=== PATIENT | male | born 1940 | race Caucasian/White ===

== ENCOUNTER 2019-02-20 19:57 | Inpatient (IN) | payer MEDICARE ==
[~2019-02-20] VITALS: Ht 170.2 cm; Wt 117.4 kg
[~2019-02-20 19:57] MED LIST: ALLO100T PO; AMLO10TA2 PO; BACITAB PO; COLA50CA3 PO; DRIS1CAP PO; FERR325T3 PO; FINA5TAB2 PO; FISH1000 PO; FLAG500T PO; HYDR-2773 PO; IPRATROPIUM INH; LABE300T PO; LASI20TA PO; MULTTAB4 PO; OMEP20CA4 PO; OXYC1TAB23 PO; PROBCAP13 PO; SIMV10TA2 PO; THERTAB30 PO; albuterol neb INH; terazosin OR
[2019-02-20] MEDS ORDERED: LANT500C (20:30)
[2019-02-20] MEDS ORDERED: GABA-1171 (20:30)
[2019-02-20] MEDS ORDERED: RENATAB5 (20:30)
[2019-02-20] MEDS ORDERED: OMEP-218 (20:30)
[2019-02-20] MEDS ORDERED: PRAV10TA3 (20:30)
[2019-02-20] MEDS ORDERED: ASMA220A (20:30)
[2019-02-20] MEDS ORDERED: ROPI0.5T (20:30)
[2019-02-20] MEDS ORDERED: TERA5CAP3 (20:30)
[2019-02-20] MEDS ORDERED: IPRA2IN (20:30)
[2019-02-20] MEDS ORDERED: ALBU83IN (20:30)
[2019-02-20 21:44] LABS: HEMATOCRIT 28.4 % (42.0-52.0); HEMOGLOBIN 9.2 g/dl (13.5-17.5); MEAN CORPUSCULAR HEMOGLOBIN 31.9 pg (27.0-33.0); MEAN CORPUSCULAR HGB CONC 32.4 g/dl (32.0-36.5); MEAN CORPUSCULAR VOLUME 98.6 fl (80.0-96.0); PLATELET COUNT, AUTOMATED 135 10^3/uL (150-450); RED BLOOD COUNT 2.88 10^6/uL (4.30-6.10); WHITE BLOOD COUNT 11.2 10^3/uL (4.0-10.0)
[2019-02-20 21:49] LABS: INR 1.27; PROTHROMBIN TIME 15.6 SECONDS (11.8-14.0)
[2019-02-20 21:50] LABS: PARTIAL THROMBOPLASTIN TIME 35.7 SECONDS (25.0-38.4)
[2019-02-20 22:04] LABS: ALBUMIN 3.3 GM/DL (3.2-5.2); ALT/SGPT 14 U/L (12-78); BILIRUBIN,TOTAL 0.5 MG/DL (0.2-1.0); BLOOD UREA NITROGEN 29 MG/DL (7-18); CALCIUM LEVEL 9.5 MG/DL (8.8-10.2); CARBON DIOXIDE LEVEL 33 MEQ/L (21-32); CHLORIDE LEVEL 95 MEQ/L (98-107); CK-MB VALUE MASS < 1.0 NG/ML (<3.6); CPK CREATINE PHOSPHOKINASE 35 U/L (39-308); CREATININE FOR GFR 5.32 MG/DL (0.70-1.30); GLOMERULAR FILTRATION RATE 11.2 (>42); GLUCOSE, FASTING 118 MG/DL (70-100); MB/CK RELATIVE INDEX 2.86 (< OR =4); NT-PRO BNP 47179 PG/ML (<450); POTASSIUM SERUM 3.8 MEQ/L (3.5-5.1); SODIUM LEVEL 137 MEQ/L (136-145); TOTAL PROTEIN 6.8 GM/DL (6.4-8.2); TROPONIN I 0.02 NG/ML (< 0.10)
[2019-02-20] MEDS ORDERED: ISOVUE-370 76% 100ML VIAL (Q9967) As Ordered ONE (22:36)
[2019-02-20] MEDS ORDERED: FINA5TAB2 PO (23:29)
[2019-02-20] MEDS ORDERED: ALBU83IN INH (23:29)
[2019-02-20] MEDS ORDERED: AMLO10TA5 PO ×2 (23:29)
[2019-02-20] MEDS ORDERED: IPRA2IN INH (23:29)
[2019-02-20] MEDS ORDERED: ASMA220A INH (23:29)
[2019-02-20] MEDS ORDERED: RENATAB5 PO (23:29)
[2019-02-20] MEDS ORDERED: FERR32TA PO (23:29)
[2019-02-20] MEDS ORDERED: GABA-1171 PO (23:29)
[2019-02-20] MEDS ORDERED: VITA1CAP25 PO (23:29)
[2019-02-20] MEDS ORDERED: OMEGCAP4 PO (23:30)
[2019-02-20] MEDS ORDERED: ROCA0.5C PO (23:30)
[2019-02-20] MEDS ORDERED: LIDO2.5C15 TOP (23:30)
[2019-02-20] MEDS ORDERED: RENV2TAB PO (23:30)
[2019-02-20] MEDS ORDERED: LANT500C PO (23:30)
[2019-02-20] MEDS ORDERED: TYLE650T35 PO (23:30)
[2019-02-20] MEDS ORDERED: CINA30TA5 PO (23:30)
[2019-02-20] MEDS ORDERED: BACITAB PO (23:30)
[2019-02-20] MEDS ORDERED: PRAV10TA3 PO (23:30)
[2019-02-20] MEDS ORDERED: OMEP-218 PO (23:30)
[2019-02-20] MEDS ORDERED: TERA5CAP3 PO (23:30)
[2019-02-20] MEDS ORDERED: LABE200T32 PO (23:30)
[2019-02-20] MEDS ORDERED: ROPI0.5T PO (23:30)
--- NOTE | 2019-02-20 23:40 | REPVR ---
EXAM: CT Angiography Chest With Contrast EXAM DATE/TIME: 02/20/2019 11:00 PM CLINICAL HISTORY: 78 years old, male; Dyspnea and shortness of breath; Additional info: Dysp TECHNIQUE: Imaging protocol: Axial computed tomographic angiography images of the chest with intravenous contrast using CT angiography protocol. Coronal and sagittal reformatted images were created and reviewed. 3D rendering: MIP reconstructed images were created and reviewed. Radiation optimization: All CT scans at this facility use at least one of these dose optimization techniques: automated exposure control; mA and/or kV adjustment per patient size (includes targeted exams where dose is matched to clinical indication); or iterative reconstruction. Contrast material: ISOVUE 370; Contrast volume: 75 ml; Contrast route: IV; COMPARISON: CR Chest, 2 view PA, Lat 02/20/2019 9:50 PM FINDINGS: Pulmonary arteries: There are no pulmonary emboli. Contrast density in the pulmonary arteries not optimized to exclude small peripheral pulmonary emboli. Aorta: The aorta demonstrates mild atherosclerotic calcification. There is no aortic dissection or aneurysm. Lungs: Bibasilar infiltrates likely atelectatic. Clinical correlation to exclude infection suggested. Pleural space: Unremarkable. No pneumothorax. No pleural effusion. Heart: There is moderate atherosclerotic calcification of the coronary arteries. Small pericardial effusion. Cardiomegaly. Kidneys and ureters: Right renal atrophy. Status post left nephrectomy. Lymph nodes: Unremarkable. No enlarged lymph nodes. Bones/joints: Arthropathic changes in the glenohumeral joints. The spine demonstrates mild degenerative changes. Soft tissues: Unremarkable. IMPRESSION: 1. Bibasilar infiltrates likely atelectatic. Clinical correlation to exclude infection suggested. 2. There is no aortic dissection or aneurysm. 3. Small pericardial effusion. 4. There are no pulmonary emboli. Contrast density in the pulmonary arteries not optimized to exclude small peripheral pulmonary emboli. Electronically signed by: Brian Huertas On 02/20/2019 23:40:31 PM
[2019-02-21] MEDS ORDERED: ACETAMINOPHEN TAB 650MG DOSE (2X325MG) PO PRN (02:00)
[2019-02-21] MEDS ORDERED: GI COCKTAIL 50ML BTL(HYOSCYAMINE/MAALOX/LIDOCAINE VISCOUS)(1:3:1) PO ONE (02:00)
[2019-02-21] MEDS ORDERED: MOM 30ML SUSPENSION UDC PO PRN (02:00)
[2019-02-21 05:15] VITALS: BP 134/43
--- NOTE | 2019-02-21 05:56 | HPEPDOC ---
General Date of Admission Feb 21, 2019 at 01:46 Date of Service: Feb 21, 2019 Primary Care Physician: Igor Conteh Other Providers Dr Burgos Attending Physician: NELLY SAN DO Chief Complaint The patient is a 78-year-old male admitted with a reason for visit of Chronic Renal Failure, Dyspnea. Source: Patient, Family, Old records Exam Limitations: No limitations, Mild cognitive slowing Timing/Duration: Week(s) (1-2), Getting worse, Changing over time, This evening Severity: Moderate Associated Symptoms: Chest Pain, Cough, Malaise, Nausea, Shortness of breath, Weakness, Other (increased acid reflux) History of Present Illness 78 yo male with HTN and ESRD presented to ED with increasing reflux,CP, SOB and cough. Patient had dialysis today 02/20 and felt fine but then when he returned home, per and daughter, he became more weak and confused with oxygen saturation 88% on RA. They states every night for past 1-2 weeks, when he eats before bed (ie popcorn), he has increased gastric reflux and chest pain and SOB. Workup in the ED showed a CXR without CHF or aspiration, CTA chest without PE. He was to be discharged home however, Per the ED , Dr Quick is requesting admission of this patient for further evaluation of his SOB, hypoxia and debility Home Medications Scheduled Acetaminophen (Tylenol Arthritis) 650 Mg Tablet.er, 1,300 MG PO BID, (Reported) Amlodipine Besylate (Amlodipine Besylate) 10 Mg Tablet, 10 MG PO 4XWK, (Reported) WEDNESDAY, WEDNESDAY, WEDNESDAY AND WEDNESDAY Amlodipine Besylate (Amlodipine Besylate) 10 Mg Tablet, 5 MG PO 3XW, (Reported) WEDNESDAY, WEDNESDAY AND WEDNESDAY Calcitriol (Rocaltrol) 0.5 Mcg Capsule, 0.5 MCG PO 2XW, (Reported) WEDNESDAY AND WEDNESDAY AT NOON Cholecalciferol (Vitamin D3) (Vitamin D3) 50,000 Unit Capsule, 50,000 UNIT PO 1XWK, (Reported) WEDNESDAY AT NOON Cinacalcet HCl (Cinacalcet HCl) 30 Mg Tablet, 30 MG PO QPM, (Reported) DINNER Ferrous Gluconate (Ferrous Gluconate) 324 Mg Tablet, 324 MG PO BID, (Reported) MORNING AND DINNER Finasteride (Finasteride) 5 Mg Tablet, 5 MG PO QPM, (Reported) DINNER Folic Acid/Vit B Complex and C (Jaci-Lisandro Tablet) 0.8 Mg Tablet, 1 TAB PO QPM, (Reported) DINNER Gabapentin (Gabapentin) 100 Mg Capsule, 100 MG PO QHS, (Reported) L.acidoph/L.bulg/B.bif/S.therm (Bacid Caplet) 1 Each Tablet, 1 TAB PO QPM, (Reported) DINNER Labetalol HCl (Labetalol HCl) 200 Mg Tablet, 200 MG PO TID, (Reported) MORNING, NOON AND BEDTIME Lanthanum Carbonate (Lanthanum Carbonate) 500 Mg Tab.chew, 500 MG PO WM, (Reported) Lidocaine/Prilocaine (Lidocaine-Prilocaine Cream) 2.5%/2.5% Cream..g., 1 DOSE TOP 3XW, (Reported) PRIOR TO DIALYSIS ON WEDNESDAY, WEDNESDAY AND WEDNESDAY [employer] [place]-3/Dha/Epa/Fish Oil ([employer] [place]-3 Fish Oil 1,000 mg Sfgl) 1,000 Mg Capsule, 2 CAP PO QHS, (Reported) Omeprazole (Omeprazole) 20 Mg Capsule.dr, 20 MG PO DAILY, (Reported) NOON Pravastatin Sodium (Pravastatin Sodium) 10 Mg Tablet, 10 MG PO QHS, (Reported) Ropinirole HCl (Ropinirole HCl) 0.5 Mg Tablet, 0.5 MG PO QHS, (Reported) Sevelamer Carbonate (Renvela) 800 Mg Tablet, 800 MG PO WM, (Reported) Terazosin HCl (Terazosin HCl) 5 Mg Capsule, 5 MG PO DAILY, (Reported) Scheduled PRN Albuterol Sulf (Albuterol Sulfate) 2.5 Mg/3 Ml Vial.neb, 2.5 MG INH QID PRN for SHORTNESS OF BREATH, (Reported) Ipratropium [place] (Ipratropium [place]) 0.2 Mg/1 Ml Solution, 0.5 MG INH BID PRN for SHORTNESS OF BREATH, (Reported) MIXES WITH ALBUTEROL TWICE A DAY NEEDED Mometasone Furoate (Asmanex) 220 Mcg Aer.pow.ba, 1 PUFF INH BID PRN for SHORTNESS OF BREATH, (Reported) Allergies Coded Allergies: codeine (Verified Allergy, Unknown, 02/20/19) Past Medical History Medical History ESRD (dialysis M,W,F) HTN COPD (due to exposure at [employer]) OA hip and shoulders HE DENIES DM,HYPOTHYROID,CAD or THONG Past surgical history: partial nephrectomy right total nephrectomy left partial bowel resection 2 knee replacement Family history: mother brain aneurysm, father cancer Social history: never smoked. worked in [employer] with environment exposure; no etoh use A-FIB/CHADSVASC A-FIB History Current/History of A-Fib/PAF?: No Review of Systems Other systems 10 systems reviewed and negative except as per HPI Physical Examination General Exam: Positive: Alert, Cooperative, Mild Distress, Other (pickwickian appearing) Eye Exam: Positive: PERRLA, Conjunctiva & lids normal, EOMI ENT Exam: Positive: Atraumatic, Mucous membr. moist/pink, Pharynx Normal Neck Exam: Positive: Supple, +2 carotid pulse wo bruit, Other (no JVD; thick neck circumfrance) Chest Exam: Positive: Clear to auscultation, Normal air movement; Negative: Rales, Rhonchi, Wheezing, Diminished Heart Exam: Positive: Rate Normal, Irregular Rhythm Telemetry: Positive: Other Telemetry: (aflutter at 70 bpm) Abdomen Exam: Positive: Normal bowel sounds, Soft (NT ND , obese) Extremity Exam: Positive: Edema (1+ bilateral edema to legs), Normal pulses, Other (left arm fistula intact with thrill); Negative: Clubbing, Cyanosis Skin Exam: Positive: Nl turgor and temperature Neuro Exam: Positive: Normal Speech, Strength at 5/5 X4 ext (tested while sitting at edge of bed. ), Sensation Intact, Cranial Nerves 3-12 NL Psych Exam: Positive: Mood NL, Oriented x 3, Other (mental status slow but intact) Other physical findings CTA CHEST:IMPRESSION: 1. Bibasilar infiltrates likely atelectatic. Clinical correlation to exclude infection suggested. 2. There is no aortic dissection or aneurysm. 3. Small pericardial effusion. 4. There are no pulmonary emboli. Contrast density in the pulmonary arteries not optimized to exclude small peripheral pulmonary emboli. EKG reviewed and rate controlled aflutter present Vital Signs Vital Signs Date Time Temp Pulse Resp B/P (MAP) Pulse Ox O2 Delivery O2 Flow Rate FiO2 02/21/19 00:45 64 18 122/55 (77) 93 Nasal Cannula 2.0 02/20/19 20:24 99.4 Laboratory Data Labs 24H Laboratory Tests 2 02/20/19 20:31: Nucleated Red Blood Cells % (auto) 0.0, Prothrombin Time 15.6H, Prothromb Time International Ratio 1.27, Activated Partial Thromboplast Time 35.7, Anion Gap 9, Glomerular Filtration Rate 11.2L, Blood Urea Nitrogen 29H, Creatinine 5.32H, Sodium Level 137, Potassium Level 3.8, Chloride Level 95L, Carbon Dioxide Level 33H, Calcium Level 9.5, Aspartate Amino Transf (AST/SGOT) 9, Alanine Aminotransferase (ALT/SGPT) 14, Total Creatine Kinase 35L, Alkaline Phosphatase 62, Total Bilirubin 0.5, Total Protein 6.8, Albumin 3.3, Creatine Kinase MB < 1.0, Creatine Kinase MB Relative Index 2.86, Troponin I 0.02, NE-Nze-A-Type Natriuretic Peptide 46774D, Albumin/Globulin Ratio 0.94L CBC/BMP Laboratory Tests 02/20/19 20:31 Red Blood Count 2.88 L, Mean Corpuscular Volume 98.6 H, Mean Corpuscular Hemoglobin 31.9, Mean Corpuscular Hemoglobin Concent 32.4, Red Cell Distribution Width 14.8 H, Calcium Level 9.5, Aspartate Amino Transf (AST/SGOT) 9, Alanine Aminotransferase (ALT/SGPT) 14, Total Creatine Kinase 35 L, Alkaline Phosphatase 62, Total Bilirubin 0.5, Total Protein 6.8, Albumin 3.3 Assessment/Plan Chest pain /indigestion - check serial troponin, consider cardiac echo; trial of GI cocktail. If negative workup, may need to consider outpatient evaluation for GI (ie EGD, reflux study,etc) and cardiac stress test, etc. Hypoxia (ox sat RA 88%) Aby worked at [employer] - may need to consider OUTPATIENT pulmonary consult for possible THONG or fibrosis (although not seen on CT scan) COPD by history without exacerbation - continue nebs, prn oxygen. he has not been started on steroids. med rec pending ESRD - consult nephrology - dialysis M,W,F Debility - consult PT/OT CODE STATUS: DNR DVT prophylaxis: SC heparin Plan / VTE VTE Prophylaxis Ordered?: Yes NELLY SAN DO Feb 21, 2019 02:00
[2019-02-21] MEDS ORDERED: HEPARIN SOD (PORCINE) 5000 UNITS/ML VIAL SC SCH (06:00)
[2019-02-21 06:36] LABS: TROPONIN I 0.09 NG/ML (< 0.10)
[2019-02-21 07:59] LABS: HEMATOCRIT 27.3 % (42.0-52.0); HEMOGLOBIN 8.5 g/dl (13.5-17.5); MEAN CORPUSCULAR HEMOGLOBIN 30.1 pg (27.0-33.0); MEAN CORPUSCULAR HGB CONC 31.1 g/dl (32.0-36.5); MEAN CORPUSCULAR VOLUME 96.8 fl (80.0-96.0); PLATELET COUNT, AUTOMATED 127 10^3/uL (150-450); RED BLOOD COUNT 2.82 10^6/uL (4.30-6.10); WHITE BLOOD COUNT 11.4 10^3/uL (4.0-10.0)
[2019-02-21 08:15] LABS: ALBUMIN 3.1 GM/DL (3.2-5.2); CALCIUM LEVEL 9.6 MG/DL (8.8-10.2); CREATININE FOR GFR 6.13 MG/DL (0.70-1.30); GLOMERULAR FILTRATION RATE 9.5 (>42); POTASSIUM SERUM 3.5 MEQ/L (3.5-5.1)
[2019-02-21 08:52] LABS: THYROID STIMULATING HORMONE 0.885 uIU/ML (0.358-3.740)
[2019-02-21] MEDS ORDERED: amLODIPine 10 MG TAB PO SCH (09:00)
--- NOTE | 2019-02-21 09:40 | REP ---
CHEST TWO VIEWS: Two views of the chest performed and compared to prior study 06/05/2014. The heart is enlarged. There is calcification of the thoracic aorta. Mediastinal silhouette is unchanged. There is scattered interstitial fibrotic change with mild patchy bibasilar atelectasis/infiltrate. There are degenerative changes of the spine. IMPRESSION: Cardiomegaly. Mild patchy bibasilar atelectasis/infiltrate. Electronically Signed by Sharan Ladd MD 02/22/2019 09:50 A
[2019-02-21] MEDS: APIXABAN 2.5 MG TAB (ELIQUIS) PO SCH ×2 (09:59→20:24)
[2019-02-21] MEDS: DOCUSATE SODIUM 100 MG CAP PO SCH ×2 (09:59→20:24)
--- NOTE | 2019-02-21 10:07 | ECGEPIP ---
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
--- NOTE | 2019-02-21 10:20 | CR ---
DATE OF CONSULTATION: 02/20/2019 CONSULTATION FOR: Elizabeth Benz MD REASON FOR CONSULTATION: To assist in the management of end-stage renal disease and shortness of breath. HISTORY OF PRESENT ILLNESS: Mr. Meza is a 78-year-old gentleman with a history of morbid obesity, end-stage renal disease, hypertension, gastroesophageal reflux disease and secondary hyperparathyroidism. He woke up at 3:00 a.m. on February 20 due to shortness of breath. He does monitor his oxygen saturation at home and it was in 80s. He did go for his regular dialysis treatment in the [facility], however, his oxygen saturation did not improve even after dialysis due to which he presented to the emergency room here at . His oxygen saturation improved with oxygen supplementation, however, he was still quite symptomatic and could not lay down at all. He had a CT angiogram done which showed bilateral basilar infiltrates but no evidence of any major pulmonary embolus. The patient was admitted last evening. I was called by the emergency room physician for consultation and did see the patient in the emergency room last evening. PAST MEDICAL AND SURGICAL HISTORY: Significant for: 1. History of end-stage renal disease requiring maintenance hemodialysis. 2. Hypertension. 3. COPD. 4. Obstructive sleep apnea. 5. Osteoarthritis. 6. Secondary hyperparathyroidism. 7. Hypercholesterolemia. 8. Morbid obesity. 9. Chronic back pain. 10. Benign prostatic hypertrophy. Past surgical history is significant for partial right nephrectomy, total left nephrectomy, partial bowel resection, knee replacement and AV fistula creation. MEDICATIONS: His home medications include: Tylenol as needed, amlodipine 10 mg daily, calcitriol 0.5 mcg twice a week, vitamin D 50,000 units once a week, Sensipar 30 mg daily, ferrous gluconate 324 mg twice a day, finasteride 5 mg daily, folic acid with vitamin B complex one tablet daily, gabapentin 100 mg at bedtime, labetalol 200 mg twice a day, Fosrenol 500 mg three times a day with meals, omeprazole 20 mg daily, pravastatin 10 mg daily, Requip 0.5 mg at bedtime, Renvela 800 mg with meals and terazosin 5 mg daily. He also uses albuterol inhaler and Atrovent inhaler daily. ALLERGIES: He has allergy to CODEINE. PERSONAL AND SOCIAL HISTORY: The patient is and lives with his family. He denies any tobacco or alcohol use. FAMILY HISTORY: Is negative for end-stage renal disease. REVIEW OF SYSTEMS: The patient denies any fever or chills. No headache, sinus or throat problems reported. Cardiovascular system is significant for orthopnea and dyspnea. Respiratory system is significant for chronic obstructive pulmonary artery disease (COPD). He denies any hemoptysis or pleuritic type of chest pain. He feels that he may have aspirated due to gastroesophageal reflux. His oxygen saturation was in the 80% range prior to admission. GI system is significant for gastroesophageal reflux disease (GERD). He denies any diarrhea or abdominal pain. system is significant for benign prostatic hyperplasia (BPH). There is no history of dysuria or hematuria at present. Musculoskeletal system significant for morbid obesity. He does not have any leg edema. Endocrine system is negative for diabetes. He denies any thyroid problems but does have secondary hyperparathyroidism. Hematological system is significant for anemia of chronic kidney disease. Neurological system negative for seizures but does have history of peripheral neuropathy and restless legs. Psychosocial system negative for depression or anxiety. PHYSICAL EXAMINATION: The patient is awake and alert at the time of my visit in the emergency room. Temperature is 97 degrees Fahrenheit, heart rate 68 per minute and respiratory rate 20 per minute. Blood pressure 110/50 mmHg and oxygen saturation 89% on 2 liters of oxygen. His head is atraumatic. Neck is supple and jugular venous distention (JVD) difficult to be assessed. There is no oral thrush or ulcers. Ears, nose and throat are unremarkable. Heart exam reveals regular S1-S2. Lungs with slightly diminished breath sounds at bases and few basilar crackles. Abdomen obese, soft and nontender and bowel sounds are normal. Extremities without any cyanosis or clubbing. His left arm AV fistula is patent. Neurologically he is awake, alert and oriented times three without a focal deficit. LABORATORY DATA: WBC count 11.2, hemoglobin 9.2 and hematocrit 28.4. Platelets 135. Sodium 137, potassium 3.8, CO2 33, BUN 29 and creatinine 5.32. A pro-BNP level is 47,179. Troponin 0.02 and 0.09. Chest x-ray showed bibasilar atelectasis versus infiltrate. CT angiogram showed no evidence of a large pulmonary embolus. Bibasilar atelectasis versus infiltrates noted. PROBLEMS: 1. End-stage renal disease. The patient is regularly dialyzed on Wednesday, Wednesday and Wednesday schedule. He was dialyzed prior to coming to the emergency room and there is no evidence of volume overload at this time. I do not feel that any emergent dialysis is indicated. We will schedule his next dialysis on February 22. He does have elevated pro-BNP level but no clinical evidence of congestive heart failure at present. 2. Hypoxemia. I am concerned about possibility of infiltrates. He thinks that he may have aspirated. He does have bibasilar atelectasis versus infiltrates. He has morbid obesity and COPD with increased risk for sleep apnea. I would recommend to continue with nebulizers and broad-spectrum antibiotics for coverage for possible aspiration pneumonia. I will reevaluate him again tomorrow morning for potential need for dialysis. 3. Hypoxemia probably multifactorial. At this point he does not seem to be grossly volume overloaded. We will monitor closely as his oxygen saturation has improved with oxygen supplementation. The patient will be reevaluated tomorrow morning for further need for dialysis. 4. Hypertension. At present his blood pressure is somewhat on the low side. His chronic antihypertensive meds should be continued. 5. Anemia. He does have anemia of chronic kidney disease without any evidence of acute GI bleed. CBC should be repeated again tomorrow morning. Thank you for involving me in the care of Mr. Meza. I will follow him along with you.
[2019-02-21] MEDS ORDERED: HEPARIN 1,000 UNITS/ML 10ML VIAL (FOR RADIOLOGY& DIALYSIS ONLY) IV ONE (11:00)
[2019-02-21] MEDS ORDERED: LIDOCAINE 1% SDV 5 ML VIAL SQ ONE (11:00)
[2019-02-21] MEDS ORDERED: CALCITRIOL 0.25 MCG CAP (S0169) PO SCH (12:00)
[2019-02-21 14:00] VITALS: BP 108/52
[2019-02-21] MEDS ORDERED: ALBUTEROL SULFATE 2.5 MG/0.5 ML INH NEB SOLN INH PRN (15:45)
[2019-02-21] MEDS ORDERED: IPRATROPIUM 0.02% SOLN 0.5MG/2.5 ML NEB INH PRN (15:45)
--- NOTE | 2019-02-21 15:56 | IPNPDOC ---
Date Seen The patient was seen on 02/21/19. Progress Note SUBJECTIVE: Pt says his sob is improved since dialysis yesterday. denies palpitations, lightheadedness, chest pressure, tightness, or pressure. no fever or cough. still requiring o2. plans for more fluid removal per nephrology. Tele: Atrial Flutter rate controlled 65, started on renally dosed eliqiuis. Physical Examination General Exam: Positive: Alert, Cooperative, Mild Distress, Other (pickwickian appearing) Eye Exam: Positive: PERRLA, Conjunctiva & lids normal, EOMI ENT Exam: Positive: Atraumatic, Mucous membr. moist/pink, Pharynx Normal Neck Exam: Positive: Supple, +2 carotid pulse wo bruit, Other (no JVD; thick neck circumfrance) Chest Exam: Positive: Clear to auscultation, Normal air movement; Negative: Rales, Rhonchi, Wheezing, Diminished Heart Exam: Positive: Rate Normal, Irregular Rhythm Telemetry: Positive: Other Telemetry: (aflutter at 70 bpm) Abdomen Exam: Positive: Normal bowel sounds, Soft (NT ND , obese) Extremity Exam: Positive: Edema (1+ bilateral edema to legs), Normal pulses, Other (left arm fistula intact with thrill); Negative: Clubbing, Cyanosis Skin Exam: Positive: Nl turgor and temperature Neuro Exam: Positive: Normal Speech, Strength at 5/5 X4 ext (tested while sitting at edge of bed. ), Sensation Intact, Cranial Nerves 3-12 NL Psych Exam: Positive: Mood NL, Oriented x 3, Other (mental status slow but intact) Other physical findings CTA CHEST:IMPRESSION: 1. Bibasilar infiltrates likely atelectatic. Clinical correlation to exclude infection suggested. 2. There is no aortic dissection or aneurysm. 3. Small pericardial effusion. 4. There are no pulmonary emboli. Contrast density in the pulmonary arteries not optimized to exclude small peripheral pulmonary emboli. LABORATORY DATA, IMAGING STUDIES, MICROBIOLOGY: PLS SEE BELOW Assessment/Plan 78 yo male with HTN and ESRD presented to ED with increasing reflux,CP, SOB and cough. Patient had dialysis today 02/20 and felt fine but then when he returned home, per and daughter, he became more weak and confused with oxygen saturation 88% on RA. They states every night for past 1-2 weeks, when he eats before bed (ie popcorn), he has increased gastric reflux and chest pain and SOB. Workup in the ED showed a CXR without CHF or aspiration, CTA chest without PE. He was to be discharged home however, Per the ED , Dr Quick is requesting admission of this patient for further evaluation of his SOB, hypoxia and debility. Fluid Overload/Hypervolemia -Nephrology consulted for fluid management -ON HD MWF Atrial Flutter, new onset -on eliquis -rate controlled -TSH wnl Hypoxia O2 sat 88% -due to fluid overload/hypervolemia s/p dialysis, further management per neph rology -new onset Atrial flutter -check noc ox-r/o genia -possible obesity hypoventilation : monitor for hypercarbia and mental status changes, will need outpt fu for PFTs COPD by history without exacerbation - continue nebs, prn oxygen. he has not been started on steroids. ESRD - consult nephrology - dialysis M,W,F Debility - consult PT/OT CODE STATUS: DNR DVT prophylaxis: SC heparin Plan / VTE VTE Prophylaxis Ordered?: Yes VS, I&O, 24H, Fishbone Vital Signs/I&O Vital Signs Date Time Temp Pulse Resp B/P (MAP) Pulse Ox O2 Delivery O2 Flow Rate FiO2 02/21/19 14:00 96.5 66 20 108/52 (70) 94 2.0 02/21/19 04:46 Nasal Cannula I&O- Last 24 Hours up to 6 AM 02/21/19 06:00 Intake Total 100 ml Balance 100 ml Laboratory Data 24H LABS Laboratory Tests 2 02/20/19 20:31: Nucleated Red Blood Cells % (auto) 0.0, Prothrombin Time 15.6H, Prothromb Time International Ratio 1.27, Activated Partial Thromboplast Time 35.7, Anion Gap 9, Glomerular Filtration Rate 11.2L, Blood Urea Nitrogen 29H, Creatinine 5.32H, Sodium Level 137, Potassium Level 3.8, Chloride Level 95L, Carbon Dioxide Level 33H, Calcium Level 9.5, Aspartate Amino Transf (AST/SGOT) 9, Alanine Aminotransferase (ALT/SGPT) 14, Total Creatine Kinase 35L, Alkaline Phosphatase 62, Total Bilirubin 0.5, Total Protein 6.8, Albumin 3.3, Creatine Kinase MB < 1.0, Creatine Kinase MB Relative Index 2.86, Troponin I 0.02, YE-Ilg-Y-Type Natriuretic Peptide 80789C, Albumin/Globulin Ratio 0.94L 02/21/19 05:49: Nucleated Red Blood Cells % (auto) 0.0, Anion Gap 1L, Glomerular Filtration Rate 9.5L, Blood Urea Nitrogen 38H, Creatinine 6.13H, Sodium Level 132L, Potassium Level 3.5, Chloride Level 100, Carbon Dioxide Level 31, Calcium Level 9.6, [place] min 3.1L, Troponin I 0.09#, OG-Rjk-F-Type Natriuretic Peptide [id number], Phosphorus Level 4.0, Thyroid Stimulating Hormone (TSH) 0.885 CBC/BMP Laboratory Tests 02/20/19 20:31 Red Blood Count 2.88 L, Mean Corpuscular Volume 98.6 H, Mean Corpuscular Hemoglobin 31.9, Mean Corpuscular Hemoglobin Concent 32.4, Red Cell Distribution Width 14.8 H, Calcium Level 9.5, Aspartate Amino Transf (AST/SGOT) 9, Alanine Aminotransferase (ALT/SGPT) 14, Total Creatine Kinase 35 L, Alkaline Phosphatase 62, Total Bilirubin 0.5, Total Protein 6.8, Albumin 3.3 02/21/19 05:49 Red Blood Count 2.82 L, Mean Corpuscular Volume 96.8 H, Mean Corpuscular Hemoglobin 30.1, Mean Corpuscular Hemoglobin Concent 31.1 L, Red Cell Distribution Width 14.9 H, Anion Gap 1 L LOKI ABREU MD Feb 21, 2019 15:56
[2019-02-21] MEDS: MAALOX 30 ML SUSP *UDC PO PRN (16:28)
[2019-02-21] MEDS: (RENVELA) SEVELAMER **CARBONate** 800 MG TAB PO SCH (17:36)
[2019-02-21] MEDS: LANTHANUM CARBONATE 500 MG CHEW TABLET PO SCH (17:41)
--- NOTE | 2019-02-21 17:55 | IPN ---
DATE: 02/21/2019 Mr. Meza is seen this morning on his bedside. He remains short of breath and is using oxygen via nasal cannula. He was admitted last evening with hypoxemia and shortness of breath. CT angiogram was negative for any significant pulmonary embolus. He did have some bilateral atelectasis versus infiltrates. PHYSICAL EXAMINATION: Temperature 96.9 degrees Fahrenheit, heart rate 58 per minute and respiratory rate 20 per minute. Blood pressure 134/43 mmHg and oxygen saturation 98% on 2 liters oxygen. Through the night, patient was on parametria was noticed to have atrial flutter episodes. At present, he seems to be in regular sinus rhythm again. His heart sounds are regular. Lungs with slightly diminished breath sounds bilaterally. Neck veins are difficult to be assessed. There is no oral thrush or ulcers. Abdomen soft and nontender. Bowel sounds normal. Extremities have no cyanosis or clubbing. Lower extremity edema is at least 1+. Neurologically, he is awake, alert and oriented times three. Today's labs show WBC count 11.4, hemoglobin 8.5 and hematocrit 27.3. Sodium 132, potassium 3.5, CO2 31, BUN 38 and creatinine 6.13. INR was 1.27 yesterday. PROBLEMS: 1. Hypoxemia. Probably he may have some volume issue here as he has been in atrial flutter at times. Patient will be brought to dialysis and we will try to remove at least 2-2.5 liters of fluid as tolerated with ultrafiltration today. 2. End-stage renal disease. Patient was dialyzed on Wednesday and his next regular dialysis will be on Wednesday. We will try to remove fluid today again and no dialysis. Regular dialysis will be done tomorrow and more fluid removal will be attempted in order to improve his volume status. 3. Anemia. His anemia is slightly worse, but no active bleeding noticed. Will continue to monitor closely. 4. Hyponatremia. Sodium level did go down to 132 from 137. It is likely to correct with dialysis and electrolytes will be checked daily. 5. Congestive heart failure. Most likely related to atrial flutter and end-stage renal disease. His brain natriuretic peptide (BNP) is repeated and still elevated at about 45,000. We will recheck his BNP after fluid removal and see how he does.
[2019-02-21] MEDS: FERROUS GLUCONATE 324 MG TAB PO SCH (20:23)
[2019-02-21] MEDS: ACETAMINOPHEN 650MG ER TAB (TYLENOL ARTHRITIS) PO SCH (20:23)
--- NOTE | 2019-02-21 20:30 | ECHO ---
DATE OF PROCEDURE: 02/21/2019 REFERRING PHYSICIAN: Elizabeth Benz INDICATION: Dysrhythmia. Height 170 cm, weight 118 kg. DIMENSIONS: IVS: 1.1 LV: 7.3 LVPW: 1.1 LA: 5.1 Aorta: 3.6 IVC: 2.7 Left atrial volume index: 48 FINDINGS: The study is of rather limited technical quality corresponding to patient's body habitus. The patient is in atrial flutter with controlled rate. Left ventricle is severely dilated but overall systolic function is probably normal or near normal based on limited views. Right ventricle does not appear grossly enlarged. Both atria appear severely enlarged. Aortic valve is sclerotic with some restriction of cusp mobility. Unfortunately technical limitation of the study did not allow proper visualization of the valve. There are mild degenerative abnormalities of mitral valve with mitral annular calcifications. Mitral and tricuspid valves appear normal. No pericardial effusion is noted. Inferior vena cava is severely dilated, and there is minimal appreciable collapse with respiration indicative of very high central venous pressure. Aortic root is normal. Aortic arch and abdominal aorta were not well seen. Doppler interrogation of aortic valve reveals no insufficiency and mild stenosis with mean gradient 14 mmHg. There is approximately [id number] mitral insufficiency and mild tricuspid insufficiency. Calculated pulmonary artery pressure is at a minimum in 40s corresponding to moderate pulmonary hypertension. Pulmonic valve is functionally competent. Evaluation of diastolic function is inconclusive due to underlying atrial flutter. CONCLUSIONS: 1. Study is of fair technical quality corresponding to patient's body habitus. 2. Dilated left ventricle with probably normal or near normal left ventricular (LV) systolic function. 3. Severe biatrial enlargement. 4. Aortic sclerosis resulting in mild stenosis and no significant insufficiency. 5. Rbkq-jv-rhwanzkr mitral insufficiency. 6. High central venous pressure and at least moderate pulmonary hypertension. COMMENT: Subacute bacterial endocarditis (SBE) prophylaxis is not recommended.
[2019-02-21] MEDS ORDERED: LACTOBACILLUS ACIDOPHILUS CAP (BACID) PO SCH (21:00)
[2019-02-21] MEDS ORDERED: OMEGA-3 1000MG CAPSULE PO SCH (21:00)
[2019-02-21] MEDS ORDERED: PRAVASTATIN 10 MG TAB PO SCH (21:00)
[2019-02-21] MEDS ORDERED: FINASTERIDE 5 MG TAB PO SCH (21:00)
[2019-02-21] MEDS ORDERED: GABAPENTIN 100 MG CAP PO SCH (21:00)
[2019-02-21] MEDS ORDERED: rOPINIRole 0.25 MG TAB(REQUIP) PO SCH (21:00)
[2019-02-21 22:00] VITALS: BP 132/56
--- NOTE | 2019-02-22 03:31 | ECGEPIP ---
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
[2019-02-22 06:00] VITALS: BP 131/59
[2019-02-22] MEDS: MAALOX 30 ML SUSP *UDC PO PRN (06:09)
[2019-02-22] MEDS: DOCUSATE SODIUM 100 MG CAP PO SCH (06:11)
[2019-02-22] MEDS: ACETAMINOPHEN 650MG ER TAB (TYLENOL ARTHRITIS) PO SCH (06:11)
[2019-02-22] MEDS: LANTHANUM CARBONATE 500 MG CHEW TABLET PO SCH (06:12)
[2019-02-22] MEDS: APIXABAN 2.5 MG TAB (ELIQUIS) PO SCH (06:13)
[2019-02-22] MEDS: (RENVELA) SEVELAMER **CARBONate** 800 MG TAB PO SCH (06:13)
[2019-02-22] MEDS: FERROUS GLUCONATE 324 MG TAB PO SCH (06:13)
[2019-02-22 06:22] LABS: HEMATOCRIT 29.3 % (42.0-52.0); MEAN CORPUSCULAR HEMOGLOBIN 30.6 pg (27.0-33.0); MEAN CORPUSCULAR HGB CONC 30.7 g/dl (32.0-36.5); MEAN CORPUSCULAR VOLUME 99.7 fl (80.0-96.0); PLATELET COUNT, AUTOMATED 125 10^3/uL (150-450); RED BLOOD COUNT 2.94 10^6/uL (4.30-6.10); WHITE BLOOD COUNT 9.1 10^3/uL (4.0-10.0)
[2019-02-22 06:43] LABS: CALCIUM LEVEL 10.5 MG/DL (8.8-10.2); CREATININE FOR GFR 5.35 MG/DL (0.70-1.30); GLOMERULAR FILTRATION RATE 11.1 (>42); POTASSIUM SERUM 3.9 MEQ/L (3.5-5.1)
[2019-02-22 06:44] VITALS: BP 131/59
[2019-02-22] MEDS ORDERED: amLODIPine 5 MG TAB PO SCH (09:00)
[2019-02-22] MEDS ORDERED: ELIQ2.5T PO (09:42)
--- NOTE | 2019-02-22 13:51 | IPN ---
DATE: 02/21/2019 Mr. Meza is seen this morning on his bedside. He underwent dialysis yesterday for ultrafiltration and his dyspnea has improved. We removed 2.5 liters fluid. His oxygen saturation is now up to 95% on room air. The patient is feeling well and wants to go home. He denies any nausea, vomiting, chest pain, fever or chills. PHYSICAL EXAMINATION: Temperature 96.9 degrees Fahrenheit, heart rate 80 per minute and respiratory rate 18 per minute. Blood pressure 131/59 mmHg and oxygen saturation 95% on room air. His head is atraumatic. Neck is supple and jugular venous distention (JVD) is difficult to be assessed. Heart: Sounds are regular. Lungs with diminished breath sounds but no wheezing or rales. Abdomen: Soft and nontender and bowel sounds are normal. Extremities have no cyanosis or clubbing. His AV fistula left arm is patent. Neurologically he is awake, alert and oriented times three. Today's labs show WBC count 9.1, hemoglobin 9.0 and hematocrit 29.3. Platelets 125. Sodium 138, potassium 3.9, CO2 29, BUN 33 and creatinine 5.35. Her calcium level is 10.5. His iron level was 19 yesterday and saturation 9.0%. His ferritin 1343. PROBLEM: 1. Hypoxemia: His oxygen saturation is now up to 95% on room air. He had an ultrafiltration yesterday and 2.5 liters of fluid was removed without any difficulty. Today's his regular dialysis treatment and we will try to remove another couple of liters and adjust his dry weight. 2. End-stage renal disease: The patient is regularly dialyzed on Wednesday, Wednesday and Wednesday schedule. He had his regular dialysis on Wednesday and then extra ultrafiltration yesterday. He will go to outpatient dialysis clinic today for his regular dialysis treatment. 3. Anemia: His anemia related to end-stage renal disease and iron deficiency. He will receive IV iron with dialysis. 4. Atrial flutter: The patient was noticed to have atrial flutter during his stay here. He seems to be in sinus rhythm now. Patient has been placed on Eliquis 2.5 mg twice a day.
--- NOTE | 2019-02-22 21:07 | DS.PDOC ---
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 JOSÉ MIGUEL WOLFE DISCHARGE DIAGNOSES: Fluid Overload/Hypervolemia Atrial Flutter, new onset Acute Hypoxic Respiratory Failure COPD by history without exacerbation ESRD - dialysis M,W,F CHF Diastolic dysfunction with preserved EF moderate pulmonary HTN Mild to moderate mitral insufficiency Biatrial enalrgement DISCHARGE MEDICATIONS: PLS SEE BELOW HISTORY OF PRESENTING ILLNESS: 78 yo male with HTN and ESRD presented to ED with increasing reflux,CP, SOB and cough. Patient had dialysis today 02/20 and felt fine but then when he returned home, per and daughter, he became more weak and confused with oxygen saturation 88% on RA. They states every night for past 1-2 weeks, when he eats before bed (ie popcorn), he has increased gastric reflux and chest pain and SOB. Workup in the ED showed a CXR without CHF or aspiration, CTA chest without PE. He was to be discharged home however, Per the ED , Dr Quick is requesting admission of this patient for further evaluation of his SOB, hypoxia and debility. HOSPITAL COURSE: Fluid Overload/Hypervolemia -Nephrology consulted for fluid management -ON HD MWF -2liters removed via dialysis, with 1kg weight loss and improved bnp overnight with resolution of hypoxia. Atrial Flutter, new onset -on eliquis 2.5 mg bid, renally dosed. -rate controlled -TSH wnl Acute Hypoxic Respiratory Failure - O2 sat 88% -due to fluid overload/hypervolemia s/p dialysis, further management per nephrology -due to new onset Atrial flutter, rate controlled -outpt referral for sleep study to rule out THONG -possible obesity hypoventilation : monitor for hypercarbia and mental status changes, will need outpt fu for PFTs CHF with preserved systolic function -diastolic dysfunction -elevated bnp improved after 2liters removed via dialysis with 1 kg loss in the past 24hrs. -fluid restriction -strict i/o -weigh daily COPD by history without exacerbation - continue nebs, prn oxygen. he has not been started on steroids. ESRD - consulted nephrology - dialysis M,W,F -s/p 2liters removed via dialysis Mild to moderate Mitral Insufficiency -outpt fu -pcp to refer to cardiology Morbid Obesity BMI 40.5 -complicating care Debility - consult PT/OT CODE STATUS: DNR DVT prophylaxis: SC heparin Plan / VTE VTE Prophylaxis Ordered?: Yes DISCHARGE PHYSICAL EXAMINATION: VITALS: PLS SEE BELOW General Exam: Positive: Alert, Cooperative, Mild Distress, Other (pickwickian appearing) Eye Exam: Positive: PERRLA, Conjunctiva & lids normal, EOMI ENT Exam: Positive: Atraumatic, Mucous membr. moist/pink, Pharynx Normal Neck Exam: Positive: Supple, +2 carotid pulse wo bruit, Other (no JVD; thick neck circumfrance) Chest Exam: Positive: Clear to auscultation, Normal air movement; Negative: Rales, Rhonchi, Wheezing, Diminished Heart Exam: Positive: Rate Normal, Irregular Rhythm Telemetry: Positive: Other Telemetry: (aflutter at 70 bpm) Abdomen Exam: Positive: Normal bowel sounds, Soft (NT ND , obese) Extremity Exam: Positive: Edema (1+ bilateral edema to legs), Normal pulses, Other (left arm fistula intact with thrill); Negative: Clubbing, Cyanosis Skin Exam: Positive: Nl turgor and temperature Neuro Exam: Positive: Normal Speech, Strength at 5/5 X4 ext (tested while sitting at edge of bed. ), Sensation Intact, Cranial Nerves 3-12 NL Psych Exam: Positive: Mood NL, Oriented x 3, Other (mental status slow but intact) Other physical findings CTA CHEST:IMPRESSION: 1. Bibasilar infiltrates likely atelectatic. Clinical correlation to exclude infection suggested. 2. There is no aortic dissection or aneurysm. 3. Small pericardial effusion. 4. There are no pulmonary emboli. Contrast density in the pulmonary arteries not optimized to exclude small peripheral pulmonary emboli. LABORATORY DATA, IMAGING STUDIES, MICROBIOLOGY: PLS SEE BELOW DATE OF PROCEDURE: 02/21/2019 REFERRING PHYSICIAN: Elizabeth Benz INDICATION: Dysrhythmia. Height 170 cm, weight 118 kg. DIMENSIONS: IVS: 1.1 LV: 7.3 LVPW: 1.1 LA: 5.1 Aorta: 3.6 IVC: 2.7 Left atrial volume index: 48 FINDINGS: The study is of rather limited technical quality corresponding to patient's body habitus. The patient is in atrial flutter with controlled rate. Left ventricle is severely dilated but overall systolic function is probably normal or near normal based on limited views. Right ventricle does not appear grossly enlarged. Both atria appear severely enlarged. Aortic valve is sclerotic with some restriction of cusp mobility. Unfortunately technical limitation of the study did not allow proper visualization of the valve. There are mild degenerative abnormalities of mitral valve with mitral annular calcifications. Mitral and tricuspid valves appear normal. No pericardial effusion is noted. Inferior vena cava is severely dilated, and there is minimal appreciable collapse with respiration indicative of very high central venous pressure. Aortic root is normal. Aortic arch and abdominal aorta were not well seen. Doppler interrogation of aortic valve reveals no insufficiency and mild stenosis with mean gradient 14 mmHg. There is approximately ogme-zv-fsyqzjoi mitral insufficiency and mild tricuspid insufficiency. Calculated pulmonary artery pressure is at a minimum in 40s corresponding to moderate pulmonary hypertension. Pulmonic valve is functionally competent. Evaluation of diastolic function is inconclusive due to underlying atrial flutter. CONCLUSIONS: 1. Study is of fair technical quality corresponding to patient's body habitus. 2. Dilated left ventricle with probably normal or near normal left ventricular (LV) systolic function. 3. Severe biatrial enlargement. 4. Aortic sclerosis resulting in mild stenosis and no significant insufficiency. 5. Xiya-ls-zrybvnso mitral insufficiency. 6. High central venous pressure and at least moderate pulmonary hypertension. COMMENT: Subacute bacterial endocarditis (SBE) prophylaxis is not recommended. DD: Mary Edmond MD 02/21/191950 DT: ISIDRO 02/21/192015 TIME SPENT ON DISCHARGE: 32 MINUTES Vital Signs/I&Os Vital Signs Date Time Temp Pulse Resp B/P (MAP) Pulse Ox O2 Delivery O2 Flow Rate FiO2 02/22/19 06:44 79 131/59 02/22/19 06:00 96.9 18 95 02/21/19 22:00 02/21/19 04:46 Nasal Cannula I&O- Last 24 Hours up to 6 AM 02/22/19 06:00 Intake Total 840 ml Output Total 2000 ml Balance -1160 ml Laboratory Data Labs 24H Laboratory Tests 2 02/22/19 06:04: Nucleated Red Blood Cells % (auto) 0.0, Anion Gap 10, Glomerular Filtration Rate 11.1L, Blood Urea Nitrogen 33H, Creatinine 5.35H, Sodium Level 138, Potassium Level 3.9, Chloride Level 99, Carbon Dioxide Level 29, Calcium Level 10.5H CBC/BMP Laboratory Tests 02/22/19 06:04 Red Blood Count 2.94 L, Mean Corpuscular Volume 99.7 H, Mean Corpuscular Hemogl obin 30.6, Mean Corpuscular Hemoglobin Concent 30.7 L, Red Cell Distribution Width 14.8 H, Calcium Level 10.5 H Discharge Medications Scheduled Acetaminophen (Tylenol Arthritis) 650 Mg Tablet.er, 1,300 MG PO BID, (Reported) Amlodipine Besylate (Amlodipine Besylate) 10 Mg Tablet, 10 MG PO 4XWK, (Reported) WEDNESDAY, WEDNESDAY, WEDNESDAY AND WEDNESDAY Amlodipine Besylate (Amlodipine Besylate) 10 Mg Tablet, 5 MG PO 3XW, (Reported) WEDNESDAY, WEDNESDAY AND WEDNESDAY Apixaban (Eliquis) 2.5 Mg Tablet, 2.5 MG PO BID Calcitriol (Rocaltrol) 0.5 Mcg Capsule, 0.5 MCG PO 2XW, (Reported) WEDNESDAY AND WEDNESDAY AT NOON Cholecalciferol (Vitamin D3) (Vitamin D3) 50,000 Unit Capsule, 50,000 UNIT PO 1XWK, (Reported) WEDNESDAY AT NOON Cinacalcet HCl (Cinacalcet HCl) 30 Mg Tablet, 30 MG PO QPM, (Reported) DINNER Ferrous Gluconate (Ferrous Gluconate) 324 Mg Tablet, 324 MG PO BID, (Reported) MORNING AND DINNER Finasteride (Finasteride) 5 Mg Tablet, 5 MG PO QPM, (Reported) DINNER Folic Acid/Vit B Complex and C (Jaci-Lisandro Tablet) 0.8 Mg Tablet, 1 TAB PO QPM, (Reported) DINNER Gabapentin (Gabapentin) 100 Mg Capsule, 100 MG PO QHS, (Reported) L.acidoph/L.bulg/B.bif/S.therm (Bacid Caplet) 1 Each Tablet, 1 TAB PO QPM, (Reported) DINNER Lanthanum Carbonate (Lanthanum Carbonate) 500 Mg Tab.chew, 500 MG PO WM, (Reported) Lidocaine/Prilocaine (Lidocaine-Prilocaine Cream) 2.5%/2.5% Cream..g., 1 DOSE TOP 3XW, (Reported) PRIOR TO DIALYSIS ON WEDNESDAY, WEDNESDAY AND WEDNESDAY Homer-3/Dha/Epa/Fish Oil (Homer-3 Fish Oil 1,000 mg Sfgl) 1,000 Mg Capsule, 2 CAP PO QHS, (Reported) Omeprazole (Omeprazole) 20 Mg Capsule.dr, 20 MG PO DAILY, (Reported) NOON Pravastatin Sodium (Pravastatin Sodium) 10 Mg Tablet, 10 MG PO QHS, (Reported) Ropinirole HCl (Ropinirole HCl) 0.5 Mg Tablet, 0.5 MG PO QHS, (Reported) Sevelamer Carbonate (Renvela) 800 Mg Tablet, 800 MG PO WM, (Reported) Terazosin HCl (Terazosin HCl) 5 Mg Capsule, 5 MG PO DAILY, (Reported) Scheduled PRN Albuterol Sulf (Albuterol Sulfate) 2.5 Mg/3 Ml Vial.neb, 2.5 MG INH QID PRN for SHORTNESS OF BREATH, (Reported) Ipratropium [place] (Ipratropium [place]) 0.2 Mg/1 Ml Solution, 0.5 MG INH BID PRN for SHORTNESS OF BREATH, (Reported) MIXES WITH ALBUTEROL TWICE A DAY NEEDED Mometasone Furoate (Asmanex) 220 Mcg Aer.pow.ba, 1 PUFF INH BID PRN for SHORTNESS OF BREATH, (Reported) Allergies Coded Allergies: codeine (Verified Allergy, Unknown, 02/20/19) LOKI ABREU MD Feb 22, 2019 20:56
== END 2019-02-22 12:16 | disposition home or self-care (01) | DRG 205 ==
LOC: M ED 19:57 → M ED INP 02-21 01:46 → M PED 02-21 05:00 → M MSPAV 02-21 05:02
PROVIDERS: ADMIT Family Medicine; ATTEND General Practice
PROC: 5A1D70Z Performance of Urinary Filtration, Intermittent, Less than 6 Hours Per Day (ICD-10-PCS; principal; 2019-02-20)
DX: E66.2 Morbid (severe) obesity with alveolar hypoventilation (principal); N18.6 End stage renal disease; I13.2 Hypertensive heart and chronic kidney disease with heart failure and with stage 5 chronic kidney disease, or end stage renal disease; N25.81 Secondary hyperparathyroidism of renal origin; E87.1 Hypo-osmolality and hyponatremia; I48.92 Unspecified atrial flutter; Z68.41 Body mass index [BMI] 40.0-44.9, adult; I50.32 Chronic diastolic (congestive) heart failure; R09.02 Hypoxemia; J44.9 Chronic obstructive pulmonary disease, unspecified; Z66 Do not resuscitate; M19.011 Primary osteoarthritis, right shoulder; M19.012 Primary osteoarthritis, left shoulder; M16.0 Bilateral primary osteoarthritis of hip; R07.9 Chest pain, unspecified; N40.0 Benign prostatic hyperplasia without lower urinary tract symptoms; I34.0 Nonrheumatic mitral (valve) insufficiency; E78.00 Pure hypercholesterolemia, unspecified; I27.20 Pulmonary hypertension, unspecified; E87.70 Fluid overload, unspecified; D63.8 Anemia in other chronic diseases classified elsewhere; K21.9 Gastro-esophageal reflux disease without esophagitis; R53.81 Other malaise; Z99.2 Dependence on renal dialysis; Z90.5 Acquired absence of kidney; Z90.49 Acquired absence of other specified parts of digestive tract; Z96.659 Presence of unspecified artificial knee joint; Z79.899 Other long term (current) drug therapy; Z88.5 Allergy status to narcotic agent